=== PATIENT | male | born 1970 | race American Indian/Alaskan Native ===

== ENCOUNTER 2021-08-09 18:58 | Emergency (ER) | payer MEDICARE ==
--- NOTE | 2021-08-09 19:27 | Emergency Department Report ---
ED Chest Pain HPI - General Chief Complaint: Chest Pain Stated Complaint: HEARING VOICES/DRUG INGERTION Time Seen by Provider: 08/09/21 19:22 Source: EMS Mode of arrival: Stretcher Limitations: No Limitations - History of Present Illness Initial Comments: 50-year-old -B[place] male presents to the emergency department from home, via EMS, with complaint of some midsternal to left-sided chest "burning" pain and some palpitations after smoking crack cocaine. EMS was called by the patient's mother after she found him smoking crack and found him to be altered. He has a history of schizophrenia and has been noncompliant with his medications. EMS says the patient was AAO x1, and actively smoking crack, when [facility] came to the house. EMS found him to have some tachycardia and elevated blood pressure. By the time he arrived to the emergency department, and at the time of my initial examination, the patient is awake and alert, oriented, AAO x3. The patient does admit to history of schizophrenia but says that he is not interested in being seen for mental health evaluation. He denies any current auditory or visual hallucinations. He denies any suicidal or homicidal ideations. Patient denies any past medical history. He does admit to tobacco use. Currently the patient says that the chest discomfort has resolved, but still feels like his heart is racing fast. - Related Data Previous Rx's Medication Instructions Recorded Last Taken Type traMADoL [Ultram 50 MG tab] 50 mg PO Q4HR PRN #20 tablet 12/16/13 Unknown Rx Cetirizine HCl [ZyrTEC 10mg rapdis] 10 mg PO DAILY #30 tab.rapdis 09/19/14 Unknown Rx Neomycin Steele/Colist/Hc/Thonzon 4 drop AU TID 7 Days drop 09/19/14 Unknown Rx [Cortisporin-Tc Ear Susp 0.33/0.3/1/0.05%] Allergies Allergy/AdvReac Type Severity Reaction Status Date / Time No Known Allergies Allergy Verified 12/16/13 02:13 Heart Score - HEART Score History: Slightly suspicious EKG: Normal Age: 45-65 Risk factors: 1-2 risk factors Troponin: < normal limit HEART Score: 2 - EKG Read Time Time EKG Completed: 19:46 EKG Read Time: 19:50 - Critical Actions Critical Actions: 0-3 pts:0.9-1.7%risk of adverse cardiac event.Candidate for discharge ED Review of Systems ROS: Stated complaint: HEARING VOICES/DRUG INGERTION Other details as noted in HPI Comment: All other systems reviewed and negative Constitutional: denies: chills, fever Eyes: denies: eye pain, vision change ENT: denies: ear pain, throat pain Respiratory: denies: cough, shortness of breath Cardiovascular: chest pain, palpitations. denies: edema Gastrointestinal: denies: abdominal pain, vomiting Genitourinary: denies: dysuria, discharge Musculoskeletal: denies: back pain, arthralgia Skin: denies: rash, lesions Neurological: denies: headache, weakness ED Past Medical Hx - Past Medical History Previous Medical History?: Yes Hx Congestive Heart Failure: No Hx Diabetes: No Hx Psychiatric Treatment: Yes (schizophrenia) Hx Asthma: No Hx COPD: No Additional medical history: crack/cocaine use - Surgical History Past Surgical History?: No - Social History Smoking Status: Current Every Day Smoker Substance Use Type: Alcohol, Cocaine - Medications Home Medications: Home Medications Medication Instructions Recorded Confirmed Last Taken Type traMADoL [Ultram 50 MG tab] 50 mg PO Q4HR PRN #20 tablet 12/16/13 Unknown Rx Cetirizine HCl [ZyrTEC 10mg rapdis] 10 mg PO DAILY #30 tab.rapdis 09/19/14 Unknown Rx Neomycin Steele/Colist/Hc/Thonzon 4 drop AU TID 7 Days drop 09/19/14 Unknown Rx [Cortisporin-Tc Ear Susp 0.33/0.3/1/0.05%] ED Physical Exam - General Limitations: No Limitations - Other Other exam information: GENERAL: The patient is well-developed well-nourished. HENT: Normocephalic. Atraumatic. Patient has moist mucous membranes. EYES: Extraocular motions are intact. NECK: Supple. Trachea is midline. CHEST/LUNGS: Clear to auscultation. There is no respiratory distress noted. HEART/CARDIOVASCULAR: Regular. There is mild tachycardia. There is no murmur. ABDOMEN: Abdomen is soft, nontender. Patient has normal bowel sounds. There is no abdominal distention. SKIN: Skin is warm and dry. NEURO: The patient is awake, alert, and oriented. The patient is cooperative. The patient has no focal neurologic deficits. Normal speech. MUSCULOSKELETAL: There is no tenderness or deformity. There is no limitation range of motion. ED Course Vital Signs 08/09/21 19:01 Temperature 99 F Pulse Rate 112 H Respiratory 18 Rate Blood Pressure 136/70 O2 Sat by Pulse 98 Oximetry ROLANDO score - Rolando Score Age > 65: (0) No Aspirin use within the Past 7 Days: (0) No 3 or more CAD Risk Factors: (0) No 2 or more Angina events in past 24 hrs: (0) No Known CAD with more than 50% Stenosis: (0) No Elevated Cardiac Markers: (0) No ST Deviation Greater than 0.5mm: (0) No ROLANDO Score: 0 ED Medical Decision Making - Lab Data Result diagrams: 08/09/21 19:29 08/09/21 19:29 Lab Results 08/09/21 08/09/21 08/09/21 Range/Units 19:29 19:29 19:29 WBC 6.3 (4.5-11.0) K/mm3 RBC 4.67 (3.65-5.03) M/mm3 Hgb 14.9 (11.8-15.2) gm/dl Hct 43.3 (35.5-45.6) % MCV 93 (84-94) fl MCH 32 (28-32) pg MCHC 34 (32-34) % RDW 13.4 (13.2-15.2) % Plt Count 164 (140-440) K/mm3 Lymph % (Auto) 24.2 (13.4-35.0) % Sully % (Auto) 7.3 (0.0-7.3) % Eos % (Auto) 6.4 H (0.0-4.3) % Baso % (Auto) 1.1 (0.0-1.8) % Lymph # (Auto) 1.5 (1.2-5.4) K/mm3 Sully # (Auto) 0.5 (0.0-0.8) K/mm3 Eos # (Auto) 0.4 (0.0-0.4) K/mm3 Baso # (Auto) 0.1 (0.0-0.1) K/mm3 Seg Neutrophils % 61.0 (40.0-70.0) % Seg Neutrophils # 3.8 (1.8-7.7) K/mm3 D-Dimer (0-234) ng/mlDDU Sodium 134 L (137-145) mmol/L Potassium 3.9 (3.6-5.0) mmol/L Chloride 99.4 (98-107) mmol/L Carbon Dioxide 24 (22-30) mmol/L Anion Gap 15 mmol/L BUN 15 (9-20) mg/dL Creatinine 0.8 (0.8-1.3) mg/dL Estimated GFR > 60 ml/min BUN/Creatinine Ratio 19 % Glucose 98 (75-100) mg/dL Calcium 9.4 (8.4-10.2) mg/dL Troponin T (0.00-0.029) ng/mL Plasma/Serum Alcohol < 0.01 (0-0.07) % 08/09/21 08/09/21 08/09/21 Range/Units 19:37 21:24 21:24 WBC (4.5-11.0) K/mm3 RBC (3.65-5.03) M/mm3 Hgb (11.8-15.2) gm/dl Hct (35.5-45.6) % MCV (84-94) fl MCH (28-32) pg MCHC (32-34) % RDW (13.2-15.2) % Plt Count (140-440) K/mm3 Lymph % (Auto) (13.4-35.0) % Sully % (Auto) (0.0-7.3) % Eos % (Auto) (0.0-4.3) % Baso % (Auto) (0.0-1.8) % Lymph # (Auto) (1.2-5.4) K/mm3 Sully # (Auto) (0.0-0.8) K/mm3 Eos # (Auto) (0.0-0.4) K/mm3 Baso # (Auto) (0.0-0.1) K/mm3 Seg Neutrophils % (40.0-70.0) % Seg Neutrophils # (1.8-7.7) K/mm3 D-Dimer 142.62 (0-234) ng/mlDDU Sodium (137-145) mmol/L Potassium (3.6-5.0) mmol/L Chloride (98-107) mmol/L Carbon Dioxide (22-30) mmol/L Anion Gap mmol/L BUN (9-20) mg/dL Creatinine (0.8-1.3) mg/dL Estimated GFR ml/min BUN/Creatinine Ratio % Glucose (75-100) mg/dL Calcium (8.4-10.2) mg/dL Troponin T < 0.010 < 0.010 (0.00-0.029) ng/mL Plasma/Serum Alcohol (0-0.07) % - EKG Data -: EKG Interpreted by Me EKG shows normal: sinus rhythm, axis, intervals, QRS complexes, ST-T waves Rate: normal - EKG Data When compared to previous EKG there are: previous EKG unavailable Interpretation: normal EKG - Radiology Data Radiology results: image reviewed interpreted by me: Chest x-ray does not show any acute process. There are no pleural effusions, obvious pneumonia and there is no pneumothorax. - Medical Decision Making This patient presents to the emergency department with a complaint of some chest pain and palpitations that started after smoking crack cocaine. Apparently the patient was altered when PD and EMS first arrived, but the patient was actively smoking crack cocaine and was most likely intoxicated. At the time of my examination, upon arrival to the ER, the patient is awake, alert, calm, appropriate, oriented. He says that his chest pain has resolved but he still has some palpitations. Heart and lung sounds are normal to auscultation. The patient does not appear in any respiratory or acute distress. EKG does not have any morphology consistent with ST elevation myocardial i nfarction or any arrhythmia. Chest x-ray does not show any pneumonia, pleural effusions, pneumothorax, widened mediastinum, or any other acute process. The patient's labs have been mostly unremarkable including CBC, metabolic panel, negative troponins x2, negative D-dimer. Vital signs of been reassuring throughout his ED course including being afebrile. For all these reasons the patient appears safe for discharge home at this time. His contact information has been sent over to the [facility], and someone from their office should be contacting him shortly for close outpatient follow-up as part of our [facility] low risk chest pain protocol. While the patient was here, he was also seen by the psychiatric behavioral health care coordinator, Ltaricia. She agrees that the patient does not appear to be exhibiting any acute psychosis, has denied any suicidal or homicidal ideations, and he does not meet criteria to be made a 1013 or require inpatient stabilization. He has been given outpatient resources for behavioral health. Critical Care Time: No Critical care attestation.: If time is entered above; I have spent that time in minutes in the direct care of this critically ill patient, excluding procedure time. ED Disposition Clinical Impression: Crack cocaine use Chest pain Qualifiers: Chest pain type: unspecified Qualified Code(s): R07.9 - Chest pain, unspecified Disposition: 01 HOME / SELF CARE / HOMELESS Is pt being admited?: No Condition: Stable Instructions: Nonspecific Chest Pain, Adult Additional Instructions: Please follow-up with a primary care physician in the next few days. Please avoid any further crack cocaine use. Please try and quit smoking cigarettes. I am sending your contact information over to the [facility], and someone from their office should be contacting you shortly for close outpatient follow-up. Just in case, I am giving you a referral for one of their telecom manager, Dr. Long. Return to the emergency department with any worsening of your symptoms, new or concerning symptoms not addressed during this current emergency department visit, or with any acute distress. OUTPATIENT RESOURCES: Professional and Agency Contacts To help Resolve Crises(24/06) [place] Crisis Line: Suicide Prevention Line: Crisis Text Line: Text START to 022335 Emergency: 911 Outpatient COMMUNITY Behavioral Health Resources: [place]: [place] [facility] [address] [place], [place] [address] [address] [place]: [facility] - [address] [place] [address] Saturday thru Saturday - 8am - 5pm [place]: [facility] Address: [address], [place] [address] [facility] Address: [address] [place] [address] Saturday thru Saturday- 7am-2pm [facility] Address: [address] [place] [address] Saturday thru Saturday: 8:30AM-5PM In case of an emergency, please contact the following numbers: [place] Crisis and Access Line: Number: Crisis Text Line: (Text START) Number: 093361 Suicide Prevention Line: Number: Emergency Number: 911 SUBSTANCE ABUSE PROGRAMS: [facility] [place]: Location: [place], [place] [facility] Address: [address] [place] [address] [facility]: Address: [address] [facility] [place] [address] [facility]: Address: [address] [place] [address] [facility] Community: Address: [address] [place] [address] [facility] Address: [address] [place] [address]. Please contact above numbers to attempt placement into free based program. Medicaid Programs: [facility]: Address: [address] [place] [address] [facility]: Address: [address] [place] [address] Referrals: PRIMARY CAREMD [Primary Care Provider] - 3-5 Days Time of Disposition: 22:35
[2021-08-09 19:56] LABS: BUN/Creatinine Ratio 19; Basophils # (Auto) 0.1 K/mm3 (0.0-0.1); Basophils % (Auto) 1.1 % (0.0-1.8); Blood Urea Nitrogen 15 mg/dL (9-20); Calcium 9.4 mg/dL (8.4-10.2); Eosinophils # (Auto) 0.4 K/mm3 (0.0-0.4); Eosinophils % (Auto) 6.4 % (0.0-4.3); Hematocrit 43.3 % (35.5-45.6); Hemoglobin 14.9 gm/dl (11.8-15.2); Hemolysis Index 17; Lymphocytes # (Auto) 1.5 K/mm3 (1.2-5.4); Lymphocytes % (Auto) 24.2 % (13.4-35.0); Mean Corpuscular HGB Conc 34 % (32-34); Mean Corpuscular Volume 93 fl (84-94); Monocytes # (Auto) 0.5 K/mm3 (0.0-0.8); Monocytes % (Auto) 7.3 % (0.0-7.3); Platelet Count 164 K/mm3 (140-440); Red Blood Count 4.67 M/mm3 (3.65-5.03); Red Cell Distribution Width 13.4 % (13.2-15.2)
--- NOTE | 2021-08-09 20:17 | XRay Report ---
CHEST 1 VIEW INDICATION / CLINICAL INFORMATION: CP STUDY TIME: 1949 COMPARISON: None available. FINDINGS: SUPPORT DEVICES: None HEART / MEDIASTINUM: No significant abnormality. LUNGS / PLEURA: No significant pulmonary or pleural abnormality. No pneumothorax. ADDITIONAL FINDINGS: No significant additional findings. IMPRESSION: No significant acute abnormality Signer Name: Shane Lorenzo MD Signed: 08/09/2021 8:13 PM Workstation Name: [id number]
[2021-08-09] MEDS ORDERED: ASPIRIN 81 MG TAB CHEW PO ONE (22:35)
[2021-08-10 02:03] VITALS: BP 115/81
--- NOTE | 2021-08-10 10:09 | Electrocardiograph Report ---
[facility] Test Date: 2021-08-09 Test Time: 19:46:48 Pat Name: FILOMENA FLOWERS Department: Room: Gender: M [employer]: COREY : 1970 Requested By: BRITTNI OCAMPO Order Number: [id number] Reading MD: Anders Gonzalez Measurements Intervals [place] Rate: 64 P: 42 IN: 155 QRS: 83 QRSD: 64 T: 64 QT: 415 QTc: 430 Interpretive Statements Sinus rhythm No previous ECG available for comparison Electronically Signed On 08-10-2021 10:09:10 EDT by Anders Gonzalez
== END 2021-08-10 00:15 | disposition home or self-care (01) ==
LOC: ED 18:58
DX: R07.9 Chest pain, unspecified (principal); F14.90 Cocaine use, unspecified, uncomplicated; F20.9 Schizophrenia, unspecified; F17.290 Nicotine dependence, other tobacco product, uncomplicated
CPT/HCPCS: 36415; 71045; 80048; 80320; 84484; 85025; 85379; 93005; 99284; G0480